=== PATIENT | female | born 1980 | race Caucasian/White ===

== ENCOUNTER 2017-01-03 15:50 | Emergency (ER) | payer SELFPAY ==
[~2017-01-03] VITALS: Ht 165.1 cm; Wt 75.0 kg
[2017-01-03 17:50] VITALS: BP 122/64
== END 2017-01-03 19:01 | disposition home or self-care (01) ==
LOC: ER 16:29
DX: S39.012A Strain of muscle, fascia and tendon of lower back, initial encounter (principal); V49.88XA Car occupant (driver) (passenger) injured in other specified transport accidents, initial encounter; Y93.89 Activity, other specified; Y92.481 Parking lot as the place of occurrence of the external cause; I10 Essential (primary) hypertension; Z88.6 Allergy status to analgesic agent; Z88.0 Allergy status to penicillin
CPT/HCPCS: 99283